=== PATIENT | female | born 1995 | race African-American/Black ===

== ENCOUNTER 2017-01-20 18:15 | Emergency (ER) | payer BC ==
[~2017-01-20] VITALS: Ht 160 cm; Wt 52.0 kg
[~2017-01-20 18:15] MED LIST: advair; albuterol
[2017-01-21] MEDS ORDERED: LIDOCAINE HCL 1% 20ML VIAL (Pyxis) INJ MC ONE
[2017-01-21] MEDS ORDERED: BACITRACIN ZINC OINT UDPKT TOP ONE
[2017-01-21] MEDS ORDERED: HYDROCODONE/ACETAMINOPHEN 5/325MG TABLET PO ONE (01:45)
[2017-01-21 04:00] VITALS: BP 118/76
== END 2017-01-21 04:00 | disposition home or self-care (01) ==
LOC: ER 18:16
DX: S62.600A Fracture of unspecified phalanx of right index finger, initial encounter for closed fracture (principal); J45.909 Unspecified asthma, uncomplicated; W23.0XXA Caught, crushed, jammed, or pinched between moving objects, initial encounter; Y93.89 Activity, other specified; Y92.89 Other specified places as the place of occurrence of the external cause; Y99.8 Other external cause status
CPT/HCPCS: 26750; 73130; 99284; J3490; Z7610

== ENCOUNTER 2017-11-03 18:40 | Emergency (ER) | payer BC ==
[~2017-11-03] VITALS: Ht 157.5 cm; Wt 71.0 kg
[2017-11-03] MEDS ORDERED: HYDROCODONE/ACETAMINOPHEN 5/325MG TABLET PO ONE (19:15)
[2017-11-03 21:10] VITALS: BP 109/62
== END 2017-11-03 21:20 | disposition home or self-care (01) ==
LOC: ER 18:40
DX: S02.2XXA Fracture of nasal bones, initial encounter for closed fracture (principal); J45.909 Unspecified asthma, uncomplicated; W21.05XA Struck by basketball, initial encounter; Y93.89 Activity, other specified; Y99.8 Other external cause status; Y92.89 Other specified places as the place of occurrence of the external cause; Z91.018 Allergy to other foods; Z91.013 Allergy to seafood
CPT/HCPCS: 70160; 99284

== ENCOUNTER 2019-04-29 22:59 | Emergency (ER) | payer BC ==
[~2019-04-29] VITALS: Ht 167.6 cm; Wt 66.0 kg
[2019-04-29] MEDS ORDERED: SODIUM CHLORIDE 0.9% 1,000 ML IV SCH (23:12)
[2019-04-29] MEDS ORDERED: DIPHENHYDRAMINE 50MG/ML VIAL IV ONE (23:15)
[2019-04-29] MEDS ORDERED: METHYLPREDNISOLONE SOD SUCC 125 MG/2 ML VIAL IV ONE (23:15)
[2019-04-29] MEDS ORDERED: FAMOTIDINE 20MG/2ML VIAL IV ONE (23:15)
[2019-04-29] MEDS ORDERED: EPINEPHRINE 1:1000 1 MG/ML AMP SUBCUT ONE (23:15)
[2019-04-30 04:31] VITALS: BP 101/47
== END 2019-04-30 04:34 | disposition home or self-care (01) ==
LOC: ER 22:59
DX: T78.1XXA Other adverse food reactions, not elsewhere classified, initial encounter (principal); R22.0 Localized swelling, mass and lump, head; R06.00 Dyspnea, unspecified; X58.XXXA Exposure to other specified factors, initial encounter
CPT/HCPCS: 96372; 96374; 96375; 99283; J1200; J2930; J3490

== ENCOUNTER 2019-04-30 12:57 | Emergency (ER) | payer BC ==
[~2019-04-30] VITALS: Ht 157.5 cm; Wt 57.0 kg
[2019-04-30] MEDS ORDERED: DIPHENHYDRAMINE 50MG/ML VIAL IV ONE (15:15)
[2019-04-30] MEDS ORDERED: SODIUM CHLORIDE 0.9% 1,000 ML IV ONE (15:15)
[2019-04-30] MEDS ORDERED: METHYLPREDNISOLONE SOD SUCC 125 MG/2 ML VIAL IV ONE (15:15)
[2019-04-30] MEDS ORDERED: FAMOTIDINE 20MG/2ML VIAL IV ONE (15:15)
[2019-04-30 17:46] VITALS: BP 110/63
== END 2019-04-30 17:57 | disposition home or self-care (01) ==
LOC: ER 12:57
DX: T78.40XA Allergy, unspecified, initial encounter (principal); G50.1 Atypical facial pain; T78.1XXA Other adverse food reactions, not elsewhere classified, initial encounter; R22.0 Localized swelling, mass and lump, head; T50.905A Adverse effect of unspecified drugs, medicaments and biological substances, initial encounter; Y92.89 Other specified places as the place of occurrence of the external cause; X58.XXXA Exposure to other specified factors, initial encounter; Z91.010 Allergy to peanuts; Z91.013 Allergy to seafood
CPT/HCPCS: 96374; 96375; 99283; J1200; J2930; J3490; J7030

== ENCOUNTER 2019-05-30 18:04 | Emergency (ER) | payer BC ==
[~2019-05-30] VITALS: Ht 157.5 cm; Wt 57.0 kg
[2019-05-30 19:13] LABS: CLARITY URINE TURBID (CLEAR); COLOR URINE YELLOW (YELLOW); KETONES URINE 1+ (NEGATIVE); LEUKOCYTE ESTERASE URINE TRACE (NEGATIVE); NITRITE URINE NEGATIVE (NEGATIVE); OCCULT BLOOD URINE NEGATIVE (NEGATIVE); PH URINE 5.5 (4.5-8.0); PROTEIN URINE 1+ (NEGATIVE); SPECIFIC GRAVITY URINE 1.044 (1.005-1.030); UROBILINOGEN URINE 0.2 E.U./dL (0.2-1.0)
[2019-05-30] MEDS ORDERED: SODIUM CHLORIDE 0.9% 1,000 ML IV ONE (22:05)
[2019-05-30] MEDS ORDERED: ONDANSETRON HCL 4MG/2ML INJ IV STA (22:05)
[2019-05-30] MEDS ORDERED: MORPHINE SULFATE 4 MG/ML CPJ (NOT FOR IM USE) IV STA (22:05)
[2019-05-30] MEDS ORDERED: KETOROLAC 30MG/ML VIAL IV STA (22:05)
[2019-05-30 22:52] LABS: BASOPHILS % 0.5 % (0.0-2.0); EOSINOPHILS % 4.8 % (0.0-5.0); HEMATOCRIT. 33.3 % (36.0-48.0); MEAN CORPUSCULAR HEMOGLOBIN 25.6 pg (28.0-32.0); MEAN CORPUSCULAR VOLUME 77.4 fL (81.0-99.0); MEAN PLATELET VOLUME 9.9 fl (7.4-10.4); NEUTROPHILS % 64.7 % (40.0-76.0); PLATELET 178 x1000/uL (130-400); RED CELL DISTRIBUTION WIDTH 16.6 % (11.6-14.6)
[2019-05-30 22:57] LABS: HCG SCREEN NEGATIVE
[2019-05-30 22:58] LABS: CHLORIDE 111 mEq/L (98-107)
[2019-05-30 23:05] LABS: ETHANOL BLOOD < 10 mg/dL
[2019-05-30 23:11] LABS: *BENZODIAZEPINES SCREEN URINE NEGATIVE (NEGATIVE)
[2019-05-30 23:12] LABS: *BARBITURATES SCREEN URINE NEGATIVE (NEGATIVE); *COCAINE SCREEN URINE NEGATIVE (NEGATIVE); CANNABINOID URINE SCREEN NEGATIVE (NEGATIVE); METHADONE URINE SCREEN NEGATIVE (NEGATIVE); OPIATES URINE SCREEN NEGATIVE (NEGATIVE); PHENCYCLIDINE URINE SCREEN NEGATIVE (NEGATIVE)
[2019-05-30 23:13] LABS: *AMPHETAMINES SCREEN URINE NEGATIVE (NEGATIVE)
[2019-05-30] MEDS ORDERED: MORPHINE SULFATE 4 MG/ML CPJ (NOT FOR IM USE) IV ONE (23:30)
[2019-05-31 00:43] VITALS: BP 104/50
== END 2019-05-31 01:04 | disposition home or self-care (01) ==
LOC: ER 18:04
DX: N83.209 Unspecified ovarian cyst, unspecified side (principal); N39.0 Urinary tract infection, site not specified; R03.0 Elevated blood-pressure reading, without diagnosis of hypertension
CPT/HCPCS: 36415; 74176; 80053; 80305; 80320; 81003; 81025; 83690; 84703; 85025; 86850; 86900; 86901; 87040; 87086; 96374; 96375; 96376; 99284; J1885; J2270; J2405; J7030; G0480

== ENCOUNTER 2019-10-01 03:19 | Emergency (ER) | payer BC ==
[~2019-10-01] VITALS: Ht 162.6 cm; Wt 56.0 kg
[2019-10-01 06:36] VITALS: BP 132/78
== END 2019-10-01 06:37 | disposition home or self-care (01) ==
LOC: ER 03:19
DX: S09.8XXA Other specified injuries of head, initial encounter (principal); Y04.2XXA Assault by strike against or bumped into by another person, initial encounter; Y93.89 Activity, other specified; Y92.89 Other specified places as the place of occurrence of the external cause
CPT/HCPCS: 99281

== ENCOUNTER 2020-09-24 13:56 | Emergency (ER) | payer BC ==
[~2020-09-24] VITALS: Ht 160 cm; Wt 57.0 kg
[2020-09-24 14:11] VITALS: BP 129/69
== END 2020-09-24 18:09 | disposition home or self-care (01) ==
LOC: ER 13:56
DX: R51.9 Headache, unspecified (principal)
CPT/HCPCS: 81025; 99282

== ENCOUNTER 2021-11-17 09:16 | Emergency (ER) | payer BC ==
[~2021-11-17] VITALS: Ht 157.5 cm; Wt 59.0 kg
[2021-11-17] MEDS ORDERED: IBUPROFEN 400MG TABLET PO ONE (09:30)
[2021-11-17] MEDS ORDERED: CEPHALEXIN 250MG CAPSULE PO ONE (09:30)
[2021-11-17] MEDS ORDERED: IBUP-2028 MT (09:56)
[2021-11-17] MEDS ORDERED: CEPH500T MT (09:56)
[2021-11-17] MEDS ORDERED: ALBU90AE INH (09:56)
[2021-11-17 10:07] VITALS: BP 136/85
== END 2021-11-17 10:09 | disposition home or self-care (01) ==
LOC: ER 09:16
DX: J45.901 Unspecified asthma with (acute) exacerbation (principal)
CPT/HCPCS: 99283

== ENCOUNTER 2022-07-03 11:45 | Emergency (ER) | payer BC ==
[~2022-07-03] VITALS: Ht 165.1 cm; Wt 75.0 kg
[~2022-07-03 11:45] MED LIST changes: +ALBU90AE INH; +CEPH500T MT; +IBUP-2028 MT
[2022-07-03] MEDS ORDERED: PREDNISONE 20MG TABLET PO ONE (14:45)
[2022-07-03] MEDS ORDERED: IPRATROPIUM/ALBUTEROL 0.5-3(2.5)MG/3ML NEB HHN ONE (14:45)
[2022-07-03] MEDS ORDERED: P20 PO (16:46)
[2022-07-03 17:09] VITALS: BP 125/75
== END 2022-07-03 17:12 | disposition home or self-care (01) ==
LOC: ER 11:45
DX: J45.901 Unspecified asthma with (acute) exacerbation (principal); Z91.010 Allergy to peanuts; Z91.013 Allergy to seafood
CPT/HCPCS: 71045; 94640; 99283; J7512; Z7610; 94664

== ENCOUNTER 2024-07-24 15:14 | Emergency (ER) | payer BC, MEDICAID ==
[~2024-07-24] VITALS: Ht 160 cm; Wt 58.9 kg
[~2024-07-24 15:14] MED LIST changes: +P20 PO
[2024-07-24 15:32] VITALS: O2SAT 99
[2024-07-24 16:21] LABS: BASOPHILS % 0.5 % (0.0-2.0); EOSINOPHILS % 8.9 % (0.0-5.0); HEMATOCRIT. 38.4 % (36.0-48.0); HEMOGLOBIN. 12.6 g/dL (12.0-16.0); LYMPHOCYTES % 27.3 % (20.0-50.0); MEAN CORPUSCULAR HGB CONC 32.9 g/dL (31.0-37.0); MEAN CORPUSCULAR VOLUME 82.1 fL (81.0-99.0); MEAN PLATELET VOLUME 9.4 fl (7.4-10.4); MONOCYTES % 5.9 % (2.0-8.0); NEUTROPHILS % 57.4 % (40.0-76.0); PLATELET 177 x1000/uL (130-400); RED BLOOD CELL COUNT 4.67 mill/uL (4.2-5.4); RED CELL DISTRIBUTION WIDTH 15.3 % (11.6-14.6); WHITE BLOOD COUNT 9.2 x1000/uL (4.5-11.0)
[2024-07-24 16:22] LABS: CHLORIDE 110 mEq/L (98-107); POTASSIUM 3.8 mEq/L (3.5-5.1); SODIUM 140 mEq/L (136-145)
[2024-07-24 16:23] LABS: CALCIUM 9.6 mg/dL (8.7-10.4); CARBON DIOXIDE 25 mEq/L (21-32)
[2024-07-24 16:28] LABS: CREATININE 0.9 mg/dL (0.6-1.0); GLUCOSE 84 mg/dL (70-105); UREA NITROGEN BLOOD 13 mg/dL (9-23)
[2024-07-24 16:36] LABS: TROPONIN I HIGH SENSITIVITY < 4 ng/L (3.0-34)
[2024-07-24] MEDS ORDERED: P20 PO (17:39)
[2024-07-24 17:56] VITALS: BP 104/49; PULSE 92; RESP 14; TEMP 36.66960; O2SAT 99
== END 2024-07-24 17:55 | disposition home or self-care (01) ==
LOC: ER 15:14
DX: J45.901 Unspecified asthma with (acute) exacerbation (principal); Z79.899 Other long term (current) drug therapy
CPT/HCPCS: 36415; 71045; 80048; 81025; 84484; 85025; 99284